=== PATIENT | male | born 1965 | race Caucasian/White ===

== ENCOUNTER 2021-03-12 11:28 | Emergency (ER) | payer OTHER ==
[~2021-03-12 11:28] MED LIST: AMOXICILLIN500 MG PO; NORCO 5-325 TA1 EACH PO
[2021-03-12] MEDS ORDERED: HYDROCODON-ACE1 EAC4 PO (13:25)
[2021-03-12] MEDS ORDERED: CEPHALEXIN500 M1 PO (13:29)
[2021-03-12] MEDS ORDERED: BACTROBAN OINT22 GM EXT (13:29)
== END 2021-03-12 14:06 | disposition home or self-care (01) ==
LOC: ER1 11:28
DX: S62.637A Displaced fracture of distal phalanx of left little finger, initial encounter for closed fracture (principal); F17.210 Nicotine dependence, cigarettes, uncomplicated; W23.0XXA Caught, crushed, jammed, or pinched between moving objects, initial encounter; Y92.009 Unspecified place in unspecified non-institutional (private) residence as the place of occurrence of the external cause
CPT/HCPCS: 12001; 73140; 99283

== ENCOUNTER 2021-11-28 12:06 | Emergency (ER) | payer OTHER ==
[~2021-11-28 12:06] MED LIST changes: +BACTROBAN OINT22 GM EXT; +CEPHALEXIN500 M1 PO; +HYDROCODON-ACE1 EAC4 PO
== END 2021-11-28 18:23 | disposition home or self-care (01) ==
LOC: ER1 12:06
DX: S61.412A Laceration without foreign body of left hand, initial encounter (principal); F17.210 Nicotine dependence, cigarettes, uncomplicated; W26.8XXA Contact with other sharp object(s), not elsewhere classified, initial encounter; Y92.009 Unspecified place in unspecified non-institutional (private) residence as the place of occurrence of the external cause
CPT/HCPCS: 12002; 99282